=== PATIENT | female | born 1950 | race Asian ===

== ENCOUNTER 2017-08-25 08:21 | Day surgery (SDC) | payer BC ==
[2017-08-21 13:27] VITALS: BMI 21.7
[2017-08-25] MEDS ORDERED: PROPOFOL 20 ML ONE ×2 (08:39)
[2017-08-25 09:30] VITALS: TEMP 98.6
[2017-08-25 10:00] VITALS: BP 101/71; PULSE 62
== END 2017-08-25 10:00 | disposition home or self-care (01) ==
LOC: FASU-ENDO 08:21
PROVIDERS: ATTEND Internal Medicine
PROC: 0DJD8ZZ Inspection of Lower Intestinal Tract, Via Natural or Artificial Opening Endoscopic (ICD-10-PCS; principal; 2017-08-25 08:50)
DX: Z12.11 Encounter for screening for malignant neoplasm of colon (principal); K92.1 Melena; K64.8 Other hemorrhoids